=== PATIENT | female | born 2000 | race Caucasian/White ===

== ENCOUNTER 2025-04-12 04:07 | Emergency (ER) | payer MEDICAID, SELFPAY ==
[2025-04-12 04:08] VITALS: BMI 22.1
--- NOTE | 2025-04-12 04:09 | EKG_ITS ---
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
[2025-04-12 04:18] VITALS: BP 143/91; PULSE 102; RESP 16; TEMP 37.7; O2SAT 97
--- NOTE | 2025-04-12 04:50 | XR_ITS ---
Examination: PA chest single view TECHNIQUE: Upright PA chest single view Date and time: April 12, 2025 0502 hours INDICATIONS: Chest pain today. FINDINGS: Normal heart size. Lungs are clear. Mild thoracic dextroscoliosis. IMPRESSION: No active disease.
--- NOTE | 2025-04-12 04:52 | PD.EDRME ---
Rapid Medical Screening Exam RME Arrival date/time: 04/12/25 04:07 25F with no significant PMH presents to ED with several days of cough and SOB, particularly when lying flat, as well as some fevers/chills. Chief Complaint: Chest Pain Vital signs: Vital Signs Temperature 99.8 F 04/12/25 04:18 Pulse Rate 102 H 04/12/25 04:18 Respiratory Rate 16 04/12/25 04:18 Blood Pressure 143/91 H 04/12/25 04:18 Pulse Oximetry (%) 97 04/12/25 04:18 Oxygen Delivery Method Room Air 04/12/25 04:18
[2025-04-12] MEDS: ACETAMINOPHEN 500 MG TABLET 1000 MG PO (05:07)
[2025-04-12 05:43] LABS: Basophils # (Auto) 0.0 Thou/mm3 (0.0-0.2); Basophils % (Auto) 1 % (0-2.5); Eosinophils # (Auto) 0.1 Thou/mm3 (0.0-0.5); Eosinophils % (Auto) 1 % (0-10); Hematocrit 41.4 % (36.0-46.0); Hemoglobin 14.1 g/dL (12.0-16.0); Immature Granulocytes Auto 0.02 Thou/mm3 (0.00-0.00); Lymphocytes # (Auto) 0.5 Thou/mm3 (1.0-4.8); Lymphocytes % (Auto) 6 % (10-50); Mean Corpuscular HGB Conc 34.1 g/dl (31.0-37.0); Mean Corpuscular Hemoglobin 31.1 pg (25.0-35.0); Mean Corpuscular Volume 91 fL (80-100); Monocytes # (Auto) 1.1 Thou/mm3 (0.0-0.8); Monocytes % (Auto) 13 % (0-12); Neutrophils # (Auto) 6.8 Thou/mm3 (1.8-7.7); Neutrophils % (Auto) 80 % (37-80); Nucleated Red Blood Cell # 0.00 Thou/mm3 (0.00-0.00); Nucleated Red Blood Cell % 0 /100 WBC (0); Platelet Count 221 Thou/mm3 (140-440); RDW Standard Deviation 39.9 fL (36.4-46.3); Red Blood Count 4.54 Miln/mm3 (4.00-5.20); White Blood Count 8.5 Thou/mm3 (3.6-11.0)
[2025-04-12 06:03] LABS: Alanine Aminotransferase 23 U/L (10-49); Albumin, Serum 4.9 gm/dL (3.5-5.0); Albumin/Globulin Ratio 1.9 (1.2-2.2); Alkaline Phosphatase 60 U/L (46-116); Anion Gap 11 (7-16); Aspartate Amino Transferase 23 U/L (0-34); BUN/Creatinine Ratio 8 Ratio (12-20); Bilirubin,Total 0.3 mg/dL (0.3-1.2); Blood Urea Nitrogen 9 mg/dL (9-23); Calcium 10.3 mg/dL (8.3-10.6); Calcium (Corrected) 10.3 mg/dL (8.5-10.1); Carbon Dioxide 24.1 mMol/L (20.0-31.0); Chloride 106 mMol/L (98-107); Creatinine (Component) 1.1 mg/dL (0.6-1.3); Estimated Creatinine Clearance 94.4 mL/min (>60); Globulin 2.6 gm/dL (2.3-3.5); Glucose 99 mg/dL (74-106); Osmolality,Calculated 279 (275-295); Potassium 4.3 mMol/L (3.4-5.1); Sodium 141 mMol/L (136-145); Total Protein 7.5 gm/dL (5.7-8.2); Troponin I < 0.002 ng/mL (0.0-0.045); eGFR > 60 See Note
[2025-04-12 06:06] LABS: B-Type Natriuretic Peptide 27 pg/mL (0-100)
--- NOTE | 2025-04-12 07:20 | PD.EDCHEST ---
ED Chest Pain RME/HPI General Chief Complaint: Chest Pain Stated Complaint: CHEST PAIN Time Seen by Provider: 04/12/25 07:15 Arrival date/time: 04/12/25 04:07 RME / HPI RME / HPI narrative: 04/12/25 04:07 25F with no significant PMH presents to ED with several days of cough and SOB, particularly when lying flat, as well as some fevers/chills. Related Data Allergies Allergy/AdvReac Type Severity Reaction Status Date / Time No Known Allergies Allergy Verified 04/12/25 04:11 Course Orders Category Date Time Status Bedside COVID-19 Antigen Test NOW Care 04/12/25 04:09 Active Bedside Influenza A&B Antigen Test NOW Care 04/12/25 04:09 Active EKG (ED ONLY) *Do not use* NOW Care 04/12/25 04:09 Completed EKG (ED Only) Stat Exams 04/12/25 04:09 Draft XR chest 1V portable Stat Exams 04/12/25 04:50 Taken B-Type Natriuretic Peptide Stat Lab 04/12/25 05:20 Completed CBC Stat Lab 04/12/25 05:20 Completed Comprehensive Metabolic Panel Stat Lab 04/12/25 05:20 Completed Troponin I Stat Lab 04/12/25 05:20 Completed Acetaminophen Tab [Tylenol ES Tab] Med 04/12/25 04:50 Discontinued 1,000 mg PO X1 ONE Vital Signs Vital signs: Vital Signs Temperature 99.8 F 04/12/25 04:18 Pulse Rate 102 H 04/12/25 04:18 Respiratory Rate 16 04/12/25 04:18 Blood Pressure 143/91 H 04/12/25 04:18 Pulse Oximetry (%) 97 04/12/25 04:18 Oxygen Delivery Method Room Air 04/12/25 04:18 Chest Pain Medications / Prescriptions Medication administrations:: Medication Administration History Discontinued Medications Acetaminophen (Acetaminophen 500 Mg Tablet) 1,000 mg PO X1 ONE Stop: 04/12/25 04:51 Last Admin: 04/12/25 05:07 Dose: 1,000 mg Documented By: FEDERICO Discharge Plan Patient/Caregiver Discharge Instructions Print Language: Kiswahili
--- NOTE | 2025-04-12 07:21 | EDNOTE_ITS ---
Upper Respiratory Inf. RME/HPI General Chief Complaint: Chest Pain Stated Complaint: CHEST PAIN Time Seen by Provider: 04/12/25 07:15 Source: patient and family Arrival date/time: 04/12/25 04:07 Limitations: no limitations RME / HPI RME / HPI Narrative: 04/12/25 04:07 25F with no significant PMH presents to ED with several days of cough and SOB, particularly when lying flat, as well as some fevers/chills. Patient is a 25-year-old female into the emergency department with concerns for cough, shortness of breath and feeling fevers and chills. Related Data Previous Rx's ?Medication ?Instructions ?Recorded albuterol sulfate 90 mcg/actuation 1 inh inhalation QI D PRN shortness 04/12/25 aerosol inhaler of breath or wheezing #6.7 g dalila Allergies Allergy/AdvReac Type Severity Reaction Status Date / Time No Known Allergies Allergy Verified 04/12/25 04:11 ED Exam General Limitations: Present no limitations General appearance: Present alert Head Head exam: Present atraumatic Eye Eye exam: Present normal appearance and PERRL ENT ENT exam: Present normal exam Neck Neck exam: Present normal inspection Chest Chest inspection: Present normal inspection and symmetric chest wall rise Respiratory Respiratory exam: Present normal lung sounds bilaterally Cardiovascular Cardiovascular exam: Present normal rhythm and tachycardia Abdominal Exam Abdominal exam: Present soft; Absent distention or tenderness Course Quality Measures none Orders Category Date Time Status Bedside COVID-19 Antigen Test NOW Care 04/12/25 04:09 Active Bedside Influenza A&B Antigen Test NOW Care 04/12/25 04:09 Active EKG (ED ONLY) *Do not use* NOW Care 04/12/25 04:09 Completed EKG (ED Only) Stat Exams 04/12/25 04:09 Draft XR chest 1V portable Stat Exams 04/12/25 04:50 Taken B-Type Natriuretic Peptide Stat Lab 04/12/25 05:20 Completed CBC Stat Lab 04/12/25 05:20 Completed Comprehensive Metabolic Panel Stat Lab 04/12/25 05:20 Completed Troponin I Stat Lab 04/12/25 05:20 Completed Acetaminophen Tab [Tylenol ES Tab] Med 04/12/25 04:50 Discontinued 1,000 mg PO X1 ONE Vital Signs Vital signs: Vital Signs Temperature 99.8 F 04/12/25 04:18 Pulse Rate 102 H 04/12/25 04:18 Respiratory Rate 16 04/12/25 04:18 Blood Pressure 143/91 H 04/12/25 04:18 Pulse Oximetry (%) 97 04/12/25 04:18 Oxygen Delivery Method Room Air 04/12/25 04:18 Upper Respiratory Infection [facility] Narrative [facility] Narrative:: Patient is a 25[facility] with concerns for fevers chills cough and generally feeling unwell. Prior provider evaluated patient. Ordered labs, chest x-ray EKG and viral swabs. Concern for pneumonia, viral syndrome, ACS arrhythmia among others. Less likely pulmonary embolus. On my evaluation patient hemodynamically stable not distress symptoms significantly improved. Patient denies hemoptysis recent travel lower extremity swelling use of hormonal medications or smoking. Labs without any leukocytosis, no left shift, hemoglobin 14, no significant acute electrolyte abnormalities or metabolic disturbances, troponin not elevated, EKG performed April 12 at 419 in the morning with evidence of sinus tachycardia, normal intervals, nonspecific T wave changes, not a cardiac alert. Chest x-ray without any acute cardiopulmonary abnormalities. Symptoms are most consistent with viral etiology symptoms. Patient data External records reviewed:: [facility] previous records Clinical information provided by:: patient Social determinants that could affect healthcare access:: none Patient has the following chronic illnesses:: None How is presenting disease/condition affected by chronic disease/condition?: no chronic disease Evaluation data The following diagnostics were reviewed and interpreted by me:: lab results, radiology exam(s) and EKG tracing(s) Lab and/or radiology exams considered but not ordered:: None Interpretation Summary: See [facility] Medications / Prescriptions Medications or Prescriptions considered but not ordered:: None Medication administrations:: Medication Administration History Discontinued Medications Acetaminophen (Acetaminophen 500 Mg Tablet) 1,000 mg PO X1 ONE Stop: 04/12/25 04:51 Last Admin: 04/12/25 05:07 Dose: 1,000 mg Documented By: CB See above Consultations Consultation(s) initiated? (list below): No Diagnosis Upper Respiratory Differential Diagnosis: upper respiratory infection Most likely diagnosis given after review of the tests above:: Shortness of breath, pharyngitis Admission Indicated Admission indicated?: not indicated Admission Request Was there a request for admission?: No Disposition Plan Disposition Plan: Discharge Discharge Attestation Discharge Attestation: The patient and all family members were given an opportunity to ask questions and understood the discharge instructions. Discharge instructions specifically effects, indications for sooner follow up or return to the emergency department, and the expected course of current diagnosis. Patient condition: Stable Discharge Plan Plan Patient Disposition: HOME (Self Care) Patient condition on transfer: Stable Prescriptions/Referrals Prescriptions/Med Rec: New albuterol sulfate 90 mcg/actuation HFA aerosol inhaler 1 inh inhalation QID PRN (Reason: shortness of breath or wheezing) Qty: 6.7 0RF Problem List Clinical Impression: Breath, shortness, Pharyngitis Patient/Caregiver Discharge Instructions Education Materials: ED Shortness of Breath (Dyspnea), ED Pharyngitis, Report Pending Additional Instructions: Please use your humidifier at home, and follow-up with your primary care doctor within 1 to 2 days. Return immediately if you have recurrence of symptoms, or any symptoms of concern. Print Language: Polish Stand Alone Forms: [employer] Award Info., Patient Portal Info Letter
[2025-04-12 07:36] VITALS: BP 127/84; PULSE 87; RESP 18; TEMP 36.6; O2SAT 99
== END 2025-04-12 07:44 | disposition home or self-care (01) ==
LOC: SERX 07:45
PROVIDERS: Physician Assistant; Emergency Provider Emergency Medicine
DX: J02.9 Acute pharyngitis, unspecified (principal); R06.02 Shortness of breath; R07.9 Chest pain, unspecified
CPT/HCPCS: 36415; 71045; 80053; 83880; 84484; 85025; 93005; 99283; A9270

== ENCOUNTER 2025-04-14 12:50 | Emergency (ER) | payer MEDICAID, SELFPAY ==
[2025-04-14 12:51] VITALS: BMI 37.1
[2025-04-14 13:33] VITALS: BP 115/84; PULSE 89; RESP 18; TEMP 39.1; O2SAT 99
--- NOTE | 2025-04-14 13:33 | XR_ITS ---
Examination: CT brain head without contrast. 2-D sagittal coronal reconstructions Date and time of exam:The fourth 2024, 1357 hrs. Indications: Headache beginning last night. CTDI: vol (mGy):53.6. DLP: (mGycm):1072. Technique: Multiple CT axial sections of the brain have been obtained, 5 mm slice thickness. Contrast has not been administered. 2-D sagittal, coronal reconstructions have been obtained Low dose protocols were performed. One or more of the following dose reduction techniques were used; automated exposure control, adjustment of the mA and/or KV according to patient size, use of iterative reconstruction technique. Findings: No significant ventricular enlargement. Intra-axial or extra-axial hemorrhage density is not seen. No mass effect or midline shift Basal cisterns are not remarkable. Fourth ventricle is midline. Cranial vault intact. Impression: Negative for acute hemorrhage, mass effect or midline shift Advise clinical correlation follow-up accordingly
--- NOTE | 2025-04-14 13:35 | PD.EDHA ---
ED Headache RME/HPI General Chief Complaint: Dental/Oral/Throat Stated Complaint: SORE THROAT x 4 DAYS, HEADACHE NOW Time Seen by Provider: 04/14/25 12:59 Source: patient and family Arrival date/time: 04/14/25 12:50 Mode of arrival: ambulatory Limitations: no limitations RME / HPI RME / HPI Narrative: Patient is a 25-year-old female is in the Emergency Department with concerns for sore throat and headache. Patient states that her symptoms with regards to her headache started last night. She took ibuprofen and symptoms did not improve and so she came to the emergency department. Feels diffuse head pain. Did not hit her self, no fevers no chills no nausea or vomiting. Patient is also dealing with a sore throat for the last few days. Patient to come to the emergency department recently because of chest pain and bodyaches, workup was normal symptoms resolved and so she went home. Patient declines any chest pain shortness of breath difficulty swallowing however does have significant pain in her throat feels like razor blades in her throat. Has not swallowed or ingested anything out of the ordinary. No travel no sick contacts. 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 Denies drugs alcohol smoking. Related Data Previous Rx's ?Medication ?Instructions ?Recorded albuterol sulfate 90 mcg/actuation 1 inh inhalation QID PRN shortness 04/12/25 aerosol inhaler of breath or wheezing #6.7 grams Allergies Allergy/AdvReac Type Severity Reaction Status Date / Time No Known Allergies Allergy Verified 04/14/25 12:53 ED Exam General Limitations: Present no limitations General appearance: Present alert Head Head exam: Present atraumatic, normocephalic and normal inspection Eye Eye exam: Present normal appearance ENT ENT exam: Present normal exam, normal oropharynx, mucous membranes moist and other (Uvula midline, no posterior oropharyngeal swelling, no masses, tongue not elevated not deviated, no cervical lymphadenopathy appreciated no swelling of the neck,) Neck Neck exam: Present normal inspection, full ROM, trachea midline, tenderness (Tenderness to palpation to left and right lateral neck) and other (Full painless range of motion, no photophobia,); Absent meningismus, lymphadenopathy or thyromegaly Chest Chest inspection: Present symmetric chest wall rise Respiratory Respiratory exam: Present normal lung sounds bilaterally; Absent respiratory distress, wheezes or stridor Cardiovascular Cardiovascular exam: Present normal rhythm Abdominal Exam Abdominal exam: Present soft; Absent distention Extremities Exam Extremities exam: Present normal inspection and full ROM Neurological Exam Neurological exam: Present alert, oriented X3, CN II-XII intact, normal gait and other (Strong in all 4 extremities, sensation intact,); Absent motor sensory deficit Skin Skin exam: Present warm, dry and intact; Absent rash Course Orders Category Date Time Status Bedside COVID-19 Antigen Test NOW Care 04/14/25 13:33 Active Bedside Influenza A&B Antigen Test NOW Care 04/14/25 13:[address] head/brain wo con Stat Exams 04/14/25 13:33 Ordered CBC Stat Lab 04/14/25 13:33 Ordered CMP [Comprehensive Metabolic Panel] Stat Lab 04/14/25 13:33 Ordered HCG,Qualitative Serum Stat Lab 04/14/25 13:33 Ordered Strep A Rapid Stat Lab 04/14/25 13:33 Ordered DiphenhydrAMINE INJ [Benadryl Inj] Med 04/14/25 13:33 Once 25 mg IM X1 ONE Lidocaine 2% Viscous [Xylocaine 2% Viscous] Med 04/14/25 13:33 Once 15 ml PO X1 ONE Metoclopramide [Reglan] Med 04/14/25 13:33 Once 5 mg PO X1 ONE Headache [facility] Narrative [facility] Narrative:: Patient is a 25 show female seen emerged apartment concerns for headache and sore throat. Vital signs and exam as listed. Concern for viral syndrome, strep throat, metabolic disturbance, intracranial hemorrhage among others. Patient without any focal neurodeficits, no rashes, no fever, no recent travel, no photophobia no meningeal signs, less likely meningitis. Patient without a stridor, no lymphadenopathy, uvula is midline, there is no posterior oropharyngeal swelling, no lesions, tongue is not elevated not deviated. Ordered labs, CT brain as well as medications for symptom relief. Patient data External records reviewed:: [facility] previous records Clinical information provided by:: patient and family Social determinants that could affect healthcare access:: none Patient has the following chronic illnesses:: None How is presenting disease/condition affected by chronic disease/condition?: no chronic disease Evaluation data The following diagnostics were reviewed and interpreted by me:: lab results and radiology exam(s) Lab and/or radiology exams considered but not ordered:: None Interpretation Summary: See MDM Medications / Prescriptions Medications or Prescriptions considered but not ordered:: None Medication administrations:: Medication Administration History Diphenhydramine HCl (Diphenhydramine Inj 50 Mg/Ml Vial) 25 mg IM X1 ONE Stop: 04/14/25 13:34 Lidocaine HCl (Lidocaine Viscous 2% 15 Ml Udc) 15 ml PO X1 ONE Stop: 04/14/25 13:34 Metoclopramide HCl (Metoclopramide 5 Mg Tablet) 5 mg PO X1 ONE Stop: 04/14/25 13:34 [facility] Discharge Plan Prescriptions/Referrals Prescriptions/Med Rec: No Action albuterol sulfate 90 mcg/actuation HFA aerosol inhaler 1 inh inhalation QID PRN (Reason: shortness of breath or wheezing) Qty: 6.7 0RF Patient/Caregiver Discharge Instructions Print Language: Welsh
[2025-04-14 13:59] LABS: Basophils # (Auto) 0.0 Thou/mm3 (0.0-0.2); Basophils % (Auto) 1 % (0-2.5); Eosinophils # (Auto) 0.0 Thou/mm3 (0.0-0.5); Eosinophils % (Auto) 0 % (0-10); Hematocrit 46.2 % (36.0-46.0); Hemoglobin 15.4 g/dL (12.0-16.0); Immature Granulocytes Auto 0.01 Thou/mm3 (0.00-0.00); Lymphocytes # (Auto) 1.7 Thou/mm3 (1.0-4.8); Lymphocytes % (Auto) 26 % (10-50); Mean Corpuscular HGB Conc 33.3 g/dl (31.0-37.0); Mean Corpuscular Hemoglobin 30.1 pg (25.0-35.0); Mean Corpuscular Volume 90 fL (80-100); Monocytes # (Auto) 0.5 Thou/mm3 (0.0-0.8); Monocytes % (Auto) 8 % (0-12); Neutrophils # (Auto) 4.3 Thou/mm3 (1.8-7.7); Neutrophils % (Auto) 65 % (37-80); Nucleated Red Blood Cell # 0.00 Thou/mm3 (0.00-0.00); Nucleated Red Blood Cell % 0 /100 WBC (0); Platelet Count 232 Thou/mm3 (140-440); RDW Standard Deviation 39.2 fL (36.4-46.3); Red Blood Count 5.11 Miln/mm3 (4.00-5.20); White Blood Count 6.6 Thou/mm3 (3.6-11.0)
[2025-04-14 14:20] LABS: Alanine Aminotransferase 24 U/L (10-49); Albumin, Serum 5.0 gm/dL (3.5-5.0); Albumin/Globulin Ratio 1.9 (1.2-2.2); Alkaline Phosphatase 55 U/L (46-116); Anion Gap 13 (7-16); Aspartate Amino Transferase 29 U/L (0-34); BUN/Creatinine Ratio 9 Ratio (12-20); Bilirubin,Total 0.4 mg/dL (0.3-1.2); Blood Urea Nitrogen 9 mg/dL (9-23); Calcium 10.4 mg/dL (8.3-10.6); Calcium (Corrected) 10.4 mg/dL (8.5-10.1); Carbon Dioxide 21.9 mMol/L (20.0-31.0); Chloride 104 mMol/L (98-107); Creatinine (Component) 1.0 mg/dL (0.6-1.3); Estimated Creatinine Clearance 104.0 mL/min (>60); Globulin 2.6 gm/dL (2.3-3.5); Glucose 94 mg/dL (74-106); HCG,Qualitative Serum Negative; Osmolality,Calculated 276 (275-295); Potassium 4.1 mMol/L (3.4-5.1); Sodium 139 mMol/L (136-145); Strep A Rapid Negative (Negative); Total Protein 7.6 gm/dL (5.7-8.2); eGFR > 60 See Note
[2025-04-14 14:39] VITALS: BP 106/79; PULSE 106; RESP 18; TEMP 37.7; O2SAT 100
[2025-04-14] MEDS: METOCLOPRAMIDE 5 MG TABLET PO (14:54)
[2025-04-14] MEDS: LIDOCAINE VISCOUS 2% 15 ML UDC PO (14:54)
[2025-04-14] MEDS: RINGERS LACTATED 1000 ML 1,000 ML 999 ML IV (14:58)
--- NOTE | 2025-04-14 15:08 | EDNOTE_ITS ---
ED Headache RME/HPI General Chief Complaint: Dental/Oral/Throat Stated Complaint: SORE THROAT x 4 DAYS, HEADACHE NOW Time Seen by Provider: 04/14/25 12:59 Arrival date/time: 04/14/25 12:50 Mode of arrival: ambulatory Limitations: no limitations RME / HPI RME / HPI Narrative: Patient is a 25-year-old female is in the Emergency Department with concerns for sore throat and headache. Patient states that her symptoms with regards to her headache started last night. She took ibuprofen and symptoms did not improve and so she came to the emergency department. Feels diffuse head pain. Did not hit her self, no fevers no chills no nausea or vomiting. Patient is also dealing with a sore throat for the last few days. Patient to come to the emergency department recently because of chest pain and bodyaches, workup was normal symptoms resolved and so she went home. Patient declines any chest pain shortness of breath difficulty swallowing however does have significant pain in her throat feels like razor blades in her throat. Has not swallowed or ingested anything out of the ordinary. No travel no sick contacts. 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 Denies drugs alcohol smoking. DR. TEJA MARTINEZ ED EVALUATION 25 year old female with no known medical history presents to the ED with worsening headache and sore throat. She was last evaluated here on 04/12/2025 for chest tightness and sore throat; workup at that time was unremarkable, and she was discharged with albuterol. Since then, her symptoms have not improved and have progressively worsened. Now describes her headache as distinctly different from her usual headaches that is sharp and severe, like someone stabbing my brain . Rating as moderate in intensity. Her sore throat has also intensified and is now described as like swallowing razor blades. Reports no relief from OTC medications taken at home. Symptoms are accompanied by fevers. Denies cough, shortness of breath, or other respiratory symptoms. Related Data Previous Rx's ?Medication ?Instructions ?Recorded albuterol sulfate 90 mcg/actuation 1 inh inhalation QI D PRN shortness 04/12/25 aerosol inhaler of breath or wheezing #6.7 g dalila Allergies Allergy/AdvReac Type Severity Reaction Status Date / Time No Known Allergies Allergy Verified 04/14/25 12:53 Review of Systems Review of Systems Systems Reviewed: All systems reviewed, normal except as documented Past Medical History Past Medical History CARDIAC: Negative Congestive Heart Failure RESPIRATORY: Negative Chronic Obstructive Pulmonary Disease (COPD) GENITOURINARY: Negative Renal Disease ENDOCRINE: Negative Diabetes Mellitus Type 1 or Diabetes Mellitus Type 2 Family History FAMILY HISTORY: Positive Family Cardiac Disorders and Family Endocrine Disorders Social History SMOKING STATUS: Never smoker ED Exam General Limitations: Present no limitations General appearance: Present alert and other (patient is sitting upright on the gurney, laughing, conversing, and does not appear to be in any distress. ) Head Head exam: Present atraumatic, normocephalic and normal inspection Eye Eye exam: Present normal appearance, PERRL and EOMI ENT ENT exam: Present mucous membranes moist and other (posterior oropharyngeal injection without exudates, the palatal arch is intact, uvual midline, no stridor, no trismus ) Neck Neck exam: Present normal inspection, full ROM and trachea midline Chest Chest inspection: Present normal inspection and symmetric chest wall rise Respiratory Respiratory exam: Present normal lung sounds bilaterally Cardiovascular Cardiovascular exam: Present regular rate, normal rhythm and normal heart sounds Abdominal Exam Abdominal exam: Present soft and normal bowel sounds Extremities Exam Extremities exam: Present normal inspection and full ROM Back Exam Back exam: Present normal inspection and full ROM Neurological Exam Neurological exam: Present alert, oriented X3 and CN II-XII intact Psychiatric Psychiatric exam: Present normal affect and normal mood Skin Skin exam: Present warm, dry, intact and normal color Course Quality Measures none Orders Category Date Time Status Bedside COVID-19 Antigen Test NOW Care 04/14/25 13:33 Active Bedside Influenza A&B Antigen Test NOW Care 04/14/25 13:[address] head/brain wo con Stat Exams 04/14/25 13:33 Completed CBC Stat Lab 04/14/25 13:43 Completed CMP [Comprehensive Metabolic Panel] Stat Lab 04/14/25 13:43 Completed HCG,Qualitative Serum Stat Lab 04/14/25 13:43 Completed Strep A Rapid Stat Lab 04/14/25 13:43 Completed Acetaminophen Ivpb [Ofirmev Inj] Med 04/14/25 15:10 Discontinued 1,000 mg in 100 ml IV X1 Dexamethasone Inj [Decadron Inj] Med 04/14/25 15:09 Discontinued 10 mg IVP X1 ONE DiphenhydrAMINE INJ [Benadryl Inj] Med 04/14/25 13:33 Discontinued 25 mg IM X1 ONE DiphenhydrAMINE INJ [Benadryl Inj] Med 04/14/25 14:49 Discontinued 25 mg IVP X1 ONE Lidocaine 2% Viscous [Xylocaine 2% Viscous] Med 04/14/25 13:33 Discontinued 15 ml PO X1 ONE Metoclopramide Inj [Reglan Inj] Med 04/14/25 15:11 Discontinued 5 mg IVP X1 ONE Metoclopramide [Reglan] Med 04/14/25 13:33 Discontinued 5 mg PO X1 ONE Ringers Lactated 1000 ml [Lactated Ringers] 1,000 ml Med 04/14/25 13:35 Discontinued IV 999 mls/hr Vital Signs Vital signs: Vital Signs Temperature 102.4 F H 04/14/25 13:33 Pulse Rate 89 04/14/25 13:33 Respiratory Rate 18 04/14/25 13:33 Blood Pressure 115/84 04/14/25 13:33 Pulse Oximetry (%) 99 04/14/25 13:33 Oxygen Delivery Method Room Air 04/14/25 13:33 Pulse ox is 99% on room air which is adequate. Headache MDM Narrative MDM Narrative:: IFarrah am scribing for and in the presence of Dr. Castellanos. Patient received Metoclopramide, Lidocaine, and Benadryl at 14:54. On my evaluation at 15:10 the patient still complains of headache and sore throat. Plan to reassess in 1 hour. 1713h: Patient reports feeling improved with medication. We reviewed all the results, analysis, and treatment plans. Patient is amenable to discharge. Strict return precautions were outlined. Patient was discharged in stable condition. Patient data External records reviewed:: [facility] previous records (I reviewed ED visit on 04/12/2025 ) Clinical information provided by:: patient Social determinants that could affect healthcare access:: none Patient has the following chronic illnesses:: None reported How is presenting disease/condition affected by chronic disease/condition?: no chronic disease Evaluation data The following diagnostics were reviewed and interpreted by me:: lab results and radiology exam(s) Lab and/or radiology exams considered but not ordered:: None Interpretation Summary: Ordering Physician: Juju Juarez MD Date of Service: 04/14/25 Procedure(s): CT head/brain wo con Accession Number(s): [id number] cc: Oz Loaiza MD; Juju Juarez MD~ Examination: CT brain head without contrast. 2-D sagittal coronal reconstructions Date and time of exam:The fourth 2024, 1357 hrs. Indications: Headache beginning last night. CTDI: vol (mGy):53.6. DLP: (mGycm):1072. Technique: Multiple CT axial sections of the brain have been obtained, 5 mm slice thickness. Contrast has not been administered. 2-D sagittal, coronal reconstructions have been obtained Low dose protocols were performed. One or more of the following dose reduction techniques were used; automated exposure control, adjustment of the mA and/or KV according to patient size, use of iterative reconstruction technique. Findings: No significant ventricular enlargement. Intra-axial or extra-axial hemorrhage density is not seen. No mass effect or midline shift Basal cisterns are not remarkable. Fourth ventricle is midline. Cranial vault intact. Impression: Negative for acute hemorrhage, mass effect or midline shift Advise clinical correlation follow-up accordingly Dictated By: Oz Loaiza MD Signed By: <Electronically signed by Oz Loaiza MD in [place]> 04/14/25 1410 Medications / Prescriptions Medications or Prescriptions considered but not ordered:: None Medication administrations:: Medication Administration History Discontinued Medications Dexamethasone Sodium Phosphate (Dexamethasone Sod Phos Inj 10 Mg/Ml Vial) 10 mg IVP X1 ONE Stop: 04/14/25 15:10 Last Admin: 04/14/25 16:30 Dose: 10 mg Documented By: Diphenhydramine HCl (Diphenhydramine Inj 50 Mg/Ml Vial) 25 mg IM X1 ONE Stop: 04/14/25 13:34 Last Admin: 04/14/25 14:49 Dose: Not Given Documented By: Non-Admin Reason: Discontinued Diphenhydramine HCl (Diphenhydramine Inj 50 Mg/Ml Vial) 25 mg IVP X1 ONE Stop: 04/14/25 14:50 Last Admin: 04/14/25 14:55 Dose: 25 mg Documented By: Lactated Ringer's (Lactated Ringers) 1,000 mls @ 999 mls/hr IV .Q1H1M ONE Stop: 04/14/25 14:35 Last Infusion: 04/14/25 16:00 Dose: Infused Documented By: Admin: 04/14/25 14:58 Dose: 999 mls/hr Documented By: KANIKA Acetaminophen (Ofirmev Inj) 1,000 mg in 100 mls @ 250 mls/hr IV X1 ONE Stop: 04/14/25 15:33 Last Infusion: 04/14/25 16:58 Dose: Infused Documented By: Admin: 04/14/25 16:31 Dose: 250 mls/hr Documented By: KANIKA Lidocaine HCl (Lidocaine Viscous 2% 15 Ml Udc) 15 ml PO X1 ONE Stop: 04/14/25 13:34 Last Admin: 04/14/25 14:54 Dose: 15 ml Documented By: Metoclopramide HCl (Metoclopramide 5 Mg Tablet) 5 mg PO X1 ONE Stop: 04/14/25 13:34 Last Admin: 04/14/25 14:54 Dose: 5 mg Documented By: KANIKA Metoclopramide HCl (Metoclopramide Inj 5 Mg/Ml Vial 2 Ml) 5 mg IVP X1 ONE; Protocol Stop: 04/14/25 15:12 Last Admin: 04/14/25 16:31 Dose: Not Given Documented By: Non-Admin Reason: Patient Refused See above Consultations Consultation(s) initiated? (list below): No Diagnosis Differential diagnosis headache: migraine, subarachnoid hemorrhage, headache and sinusitis Most likely diagnosis given after review of the tests above:: Headache Pharyngitis Viral syndrome Admission Indicated Admission indicated?: not indicated Admission Request Was there a request for admission?: No Disposition Plan Disposition Plan: Discharge Discharge Attestation Discharge Attestation: The patient and all family members were given an opportunity to ask questions and understood the discharge instructions. Discharge instructions specifically effects, indications for sooner follow up or return to the emergency department, and the expected course of current diagnosis. Patient condition: Stable Discharge Plan Plan Patient Disposition: HOME (Self Care) Discharge Disposition comment: Stable for discharge home Patient condition on transfer: Stable Prescriptions/Referrals Prescriptions/Med Rec: No Action albuterol sulfate 90 mcg/actuation HFA aerosol inhaler 1 inh inhalation QID PRN (Reason: shortness of breath or wheezing) Qty: 6.7 0RF Referrals: Aristeo Moss MD [Primary Care Provider] - In 1 week Problem List Clinical Impression: Headache, Pharyngitis, Acute viral syndrome Patient/Caregiver Discharge Instructions Discharge Activity: activity as tolerated Other Activity Instructions:: As tolerated Diet Instructions: No restrictions Education Materials: Self-Care for Sore Throats, Self-Care for Headaches, ED Viral Syndrome (Adult), ED URI, Viral, No Abx (Adult) Additional Instructions: Today you were seen in the emergency department for headache, sore throat and viral infection. You arrived to the ER with a fever of 102.4. You received several medications including Benadryl, dexamethasone, IV acetaminophen, lid ocaine swallow and a medicine called metoclopramide for headache. You should take 600 mg of ibuprofen and 1 g of acetaminophen up to every 6 hours to control fevers and pain at home Today your blood work was very reassuring. But please pay attention to your body and return to the ER if you feel like you are worsening or not getting any better. Otherwise you should follow-up with your primary care doctor within the next several days Print Language: Tuvaluan Stand Alone Forms: [employer]ara Award Info., Patient Portal Info Letter
[2025-04-14 16:21] VITALS: BP 118/79; PULSE 76; RESP 14; TEMP 37.1; O2SAT 96
[2025-04-14] MEDS: DEXAMETHASONE SOD PHOS INJ 10 MG/ML VIAL IVP (16:30)
[2025-04-14] MEDS: ACETAMINOPHEN IVPB 1,000 MG/100 ML VIAL 250 MG IV (16:31)
[2025-04-14 18:12] VITALS: BP 112/73; PULSE 66; RESP 12; O2SAT 98
== END 2025-04-14 18:14 | disposition home or self-care (01) ==
PROVIDERS: Emergency Medicine; Emergency Provider Emergency Medicine; PCP Family Medicine
DX: R51.9 Headache, unspecified (principal); B34.9 Viral infection, unspecified; J02.9 Acute pharyngitis, unspecified
CPT/HCPCS: 36415; 70450; 80053; 84703; 85025; 87400; 87651; 87811; 96361; 96365; 96375; 99282; J0131; J1100; J1200; J3490; J7120; A9270